=== PATIENT | female | born 1945 | race Caucasian/White ===

== ENCOUNTER 2016-09-10 05:16 | Day surgery (SDC) | payer OTHER, BC ==
[~2016-09-10] VITALS: Ht 162.6 cm; Wt 122.0 kg
[~2016-09-10 05:16] MED LIST: ATIVAN0.5 MG PO; FLONASE16 G1 BOTH NARES; LIPITOR40 MG PO; METANX CAPSULE1 EACH PO; PROAIR HFA8.5 GM IH; PROTONIX40 MG PO; TOPROL XL50 MG PO; ZYRTEC10 M2 PO
[2016-09-10 05:57] VITALS: BP 140/74
[2016-09-10 09:40] VITALS: BP 159/72
[2016-09-10 10:56] VITALS: BP 132/62
[2016-09-10 12:49] VITALS: BP 157/72
[2016-09-10 15:11] VITALS: BP 152/69
== END 2016-09-10 15:19 | disposition home or self-care (01) ==
LOC: SDC 05:16
PROC: 0UDB8ZX Extraction of Endometrium, Via Natural or Artificial Opening Endoscopic, Diagnostic (ICD-10-PCS; principal; 2016-09-10)
DX: N85.01 Benign endometrial hyperplasia (principal); N85.4 Malposition of uterus; E66.01 Morbid (severe) obesity due to excess calories; Z68.42 Body mass index [BMI] 45.0-49.9, adult; I10 Essential (primary) hypertension; H91.93 Unspecified hearing loss, bilateral; F41.9 Anxiety disorder, unspecified; K21.9 Gastro-esophageal reflux disease without esophagitis; E78.5 Hyperlipidemia, unspecified; E03.9 Hypothyroidism, unspecified; K58.9 Irritable bowel syndrome, unspecified; M85.80 Other specified disorders of bone density and structure, unspecified site; G62.9 Polyneuropathy, unspecified; G47.30 Sleep apnea, unspecified; Z82.49 Family history of ischemic heart disease and other diseases of the circulatory system; Z80.1 Family history of malignant neoplasm of trachea, bronchus and lung; Z83.49 Family history of other endocrine, nutritional and metabolic diseases; Z88.1 Allergy status to other antibiotic agents; Z88.8 Allergy status to other drugs, medicaments and biological substances
CPT/HCPCS: 88305; J2250

== ENCOUNTER 2016-11-11 21:38 | Inpatient (IN) | payer OTHER, BC ==
[~2016-11-11] VITALS: Ht 165.1 cm; Wt 123.8 kg
[2016-11-12 11:26] VITALS: BP 128/63
[2016-11-12 18:09] VITALS: BP 122/58
[2016-11-12 19:57] VITALS: BP 136/68
[2016-11-12 20:27] LABS: HEMATOCRIT 42.1 % (36.0-46.0); MCHC 32.8 G/DL (30.0-36.0); MCV 88.4 FL (83-99); MEAN PLAT.VOLUME 8.3 uM^3 (9.5-12.4); PLATELET COUNT 248 K/uL (156-360); RBC DIS.WIDTH-CV 13.1 % (11.8-14.6); RBC DIS.WIDTH-SD 42.6 % (39-53); RED BLOOD COUNT 4.76 M/uL (3.80-5.20); WHITE BLOOD COUNT 13.8 K/uL (4.1-10.2)
[2016-11-12 20:51] LABS: ANION GAP 14 MEQ/L (2-14); CHLORIDE 104 MEQ/L (99-109); GFR ESTIMATE (CALCULATED) > 59 mL/min/; GLUCOSE 164 mg/dL (70-99); POTASSIUM 4.5 MEQ/L (3.7-5.4); SAMPLE HEMOLYSIS CHECK 2; SAMPLE ICTERIC CHECK 0; SAMPLE LIPEMIA CHECK 0; SODIUM 140 MEQ/L (136-147); UREA NITROGEN (BUN) 12 mg/dL (9-23)
[2016-11-13] VITALS (7 sets, daily range): BP systolic 124–162; BP diastolic 60–78
[2016-11-13 07:46] LABS: HEMATOCRIT 40.3 % (36.0-46.0); MCH 29.1 PG (29.0-34.0); MCV 88.2 FL (83-99); MEAN PLAT.VOLUME 8.5 uM^3 (9.5-12.4); PLATELET COUNT 279 K/uL (156-360); RBC DIS.WIDTH-CV 13.2 % (11.8-14.6); RBC DIS.WIDTH-SD 42.7 % (39-53); RED BLOOD COUNT 4.57 M/uL (3.80-5.20); WHITE BLOOD COUNT 12.6 K/uL (4.1-10.2)
[2016-11-13 08:03] LABS: ANION GAP 8 MEQ/L (2-14); CHLORIDE 103 MEQ/L (99-109); GFR ESTIMATE (CALCULATED) > 59 mL/min/; GLUCOSE 141 mg/dL (70-99); SAMPLE HEMOLYSIS CHECK 0; SAMPLE ICTERIC CHECK 0; SAMPLE LIPEMIA CHECK 0; SODIUM 140 MEQ/L (136-147); UREA NITROGEN (BUN) 8 mg/dL (9-23)
[2016-11-14 03:47] VITALS: BP 117/59
[2016-11-14 07:15] VITALS: BP 121/60
[2016-11-14 07:19] LABS: HEMATOCRIT 37.7 % (36.0-46.0); MCHC 33.4 G/DL (30.0-36.0); MCV 89.8 FL (83-99); MEAN PLAT.VOLUME 8.9 uM^3 (9.5-12.4); PLATELET COUNT 237 K/uL (156-360); RBC DIS.WIDTH-CV 13.6 % (11.8-14.6); RBC DIS.WIDTH-SD 44.5 % (39-53); WHITE BLOOD COUNT 12.5 K/uL (4.1-10.2)
[2016-11-14 07:46] LABS: ANION GAP 7 MEQ/L (2-14); CHLORIDE 102 MEQ/L (99-109); GFR ESTIMATE (CALCULATED) > 59 mL/min/; GLUCOSE 99 mg/dL (70-99); POTASSIUM 4.9 MEQ/L (3.7-5.4); SAMPLE HEMOLYSIS CHECK 4; SAMPLE ICTERIC CHECK 0; SAMPLE LIPEMIA CHECK 0; SODIUM 140 MEQ/L (136-147); UREA NITROGEN (BUN) 7 mg/dL (9-23)
[2016-11-14] MEDS ORDERED: TRAMADOL HCL50 MG PO (09:00)
== END 2016-11-14 09:41 | disposition home or self-care (01) | DRG 742 ==
LOC: ENRESERV 21:38 → 2SOUTH 11-12 09:46 → ENRESERV 11-12 13:59 → 2EAST 11-12 18:20
PROVIDERS: Obstetrics & Gynecology Gynecologic Oncology
DX: N85.01 Benign endometrial hyperplasia (principal); Z68.42 Body mass index [BMI] 45.0-49.9, adult; F41.1 Generalized anxiety disorder; I10 Essential (primary) hypertension; K21.9 Gastro-esophageal reflux disease without esophagitis; E78.00 Pure hypercholesterolemia, unspecified; G47.33 Obstructive sleep apnea (adult) (pediatric); Z90.49 Acquired absence of other specified parts of digestive tract; K58.9 Irritable bowel syndrome, unspecified; E66.01 Morbid (severe) obesity due to excess calories; D86.9 Sarcoidosis, unspecified
CPT/HCPCS: 36415; 80048; 85027; 86900; 86901; 86920; 88307; 99202; J0131; J0690; J1170; J1650; J2250; J2405; J2550; J2765; J3010; J7120